=== PATIENT | female | born 1980 | race African-American/Black ===

== ENCOUNTER 2016-07-10 18:25 | Emergency (ER) | payer MEDICAID ==
[~2016-07-10] VITALS: Ht 170.2 cm; Wt 145.0 kg
[~2016-07-10 18:25] MED LIST: ALBUAER3 INH; FLUT50SP EACH NARE; METF500T PO
[2016-07-10 18:26] VITALS: BP 150/92; PULSE 96; RESP 20; TEMP 97.9; O2SAT 98
--- NOTE | 2016-07-10 19:35 | PD ---
HPI Chief Complaint: ENT Complaint Time Seen by Provider: 19:31 Travel History International Travel<30 days: No Contact w/Intl Traveler<30days: No Traveled to known affect area: No History of Present Illness HPI 36-year-old black female presents to emergency department with a one-week history of sore throat. She states that in addition to her sore throat which has been getting worse and has been persistent she's had sinus congestion, runny nose, cough, some shortness of breath and general malaise. Some nausea. She denies any fever or chills. No ear pain, vomiting, diarrhea, abdominal pain or urinary symptoms. She denies any significant myalgias or arthralgias. Patient states that she has an appointment with her doctor in the morning but states that she cannot wait. PFSH Past Medical History Narrative Medical Asthma, diabetes, gallbladder pancreatitis Asthma: Yes Blood Disorders: No Heart Rhythm Problems: No Cancer: No Cardiovascular Problems: Yes High Cholesterol: No Chest Pain: No Congestive Heart Failure: No COPD: No Diabetes: Yes Diminished Hearing: No Endocrine: Yes Gastrointestinal Disorders: Yes GERD: Yes Genitourinary: No Hypertension: Yes (PREECLAMPSIA) Immune Disorder: No Implanted Vascular Access Dvce: No Musculoskeletal: No Neurologic: No Psychiatric: No Reproductive: No Respiratory: Yes (ASTHMA) Immunizations Current: Yes Pancreatitis: Yes Sleep Apnea: No Thyroid Disease: No Tetanus Vaccination: Unknown ?: Not LMP: 1 WEEK AGO : 2 Para: 2 Miscarriage: 0 : 0 Past Surgical History Narrative Surgical Cholecystectomy, herniorrhaphy Abdominal Surgery: Yes (HERNIA) Cholecystectomy: Yes Pacemaker: No Other Surgery: Yes (CHOLECYSTECTOMY) Social History Alcohol Use: No Tobacco Use: No Substance Use: No Allergies-Medications (Allergen,Severity, Reaction): Coded Allergies: No Known Allergies (Unverified , 07/10/16) Reported Meds & Prescriptions Reported Meds & Active Scripts Active Metformin (Metformin HCl) 500 Mg Tab 500 Mg PO DAILY With a meal Proair Hfa 8.5 GM Inh (Albuterol Sulfate) 90 Mcg/Act Aer 1 Puff INH Q4H PRN 108 mcg/actuation Fluticasone Nasal [place] 50 Mcg/Act Naspr 50 Mcg EACH NARE BID 50 mcg/spray Review of Systems Except as stated in HPI: all other systems reviewed are Neg Physical Exam Narrative GENERAL: Well-nourished, well-developed patient. SKIN: Warm and dry. HEAD: Normocephalic. EYES: No scleral icterus. No injection or drainage. NECK: Supple, trachea midline. No JVD or lymphadenopathy. CARDIOVASCULAR: Regular rate and rhythm without murmurs, gallops, or rubs. RESPIRATORY: Breath sounds equal bilaterally. No accessory muscle use. GASTROINTESTINAL: Abdomen soft, non-tender, nondistended. MUSCULOSKELETAL: No cyanosis, or edema. BACK: Nontender without obvious deformity. No CVA tenderness. Data Data Last Documented VS Vital Signs Date Time Temp Pulse Resp B/P Pulse Ox O2 Delivery O2 Flow Rate FiO2 07/10/16 18:26 97.9 96 20 150/92 98 Room Air Orders Group A Rapid Strep Screen (07/10/16 19:35) Strep Culture (Group A) (07/10/16 19:45) MDM Medical Decision Making Medical Screen Exam Complete: Yes Emergency Medical Condition: Yes Medical Record Reviewed: Yes Interpretation(s) Rapid strep: Negative Differential Diagnosis MDM: High Differential diagnoses: Pneumonia, bronchitis, URI, asthma, RAD, influenza Narrative Course Patient's rapid strep is negative. This is acute pharyngitis Diagnosis Primary Impression: Acute pharyngitis Qualified Code: J02.9 - Acute pharyngitis, unspecified etiology Patient Instructions: General Instructions Additional Instructions: Rest. Force fluids. Saltwater gargles. Tylenol and Advil. Chloraseptic [place] Cepastat lozenge. Maalox and Benadryl 50-50 1 teaspoon swish and swallow every 2 hours Follow-up with a primary care doctor in one week. Return to the ER if any problems. Med/Other Pt SpecificInfo: No Meds Exist/No RX given Disposition: 01 DISCHARGE HOME Condition: Stable Ramin Mann Jul 10, 2016 19:35
[2016-07-11] MEDS ORDERED: METF500T PO (10:30)
[2016-07-21] MEDS ORDERED: PRED20 PO (16:00)
== END 2016-07-10 21:11 | disposition home or self-care (01) ==
LOC: NEPB 18:25
DX: J02.9 Acute pharyngitis, unspecified (principal); J45.909 Unspecified asthma, uncomplicated; E11.9 Type 2 diabetes mellitus without complications
CPT/HCPCS: 87081; 87880; 99283

== ENCOUNTER 2016-08-21 08:34 | Emergency (ER) | payer MEDICAID ==
[~2016-08-21] VITALS: Ht 167.6 cm; Wt 145.0 kg
[~2016-08-21 08:34] MED LIST changes: +PRED20 PO
[2016-08-21 08:35] VITALS: BP 193/112; PULSE 104; RESP 24; TEMP 100; O2SAT 97
--- NOTE | 2016-08-21 08:58 | PD ---
HPI Chief Complaint: Cold / Flu Symptoms Time Seen by Provider: 08:58 Travel History International Travel<30 days: No Contact w/Intl Traveler<30days: No Traveled to known affect area: No History of Present Illness HPI 36-year-old female came to the emergency room with history of sore throat, fever , chills, headache and body ache for past 2 days. Patient says her throat hurts a lot and she is unable to eat or drink anything. Patient had a temperature of 100 in the triage with some tachycardia. She looks uncomfortable. She does not recall of any sick contacts. She is able to talk and answer questions appropriately. Patient is unable to swallow since that makes the pain worse. PFSH Past Medical History Narrative Medical List of her home medications reviewed from the nursing note. Asthma: Yes Blood Disorders: No Heart Rhythm Problems: No Cancer: No Cardiovascular Problems: Yes High Cholesterol: No Chest Pain: No Congestive Heart Failure: No COPD: No Diabetes: Yes Diminished Hearing: No Endocrine: Yes Gastrointestinal Disorders: Yes GERD: Yes Genitourinary: No Hypertension: Yes (PREECLAMPSIA) Immune Disorder: No Implanted Vascular Access Dvce: No Musculoskeletal: No Neurologic: No Psychiatric: No Reproductive: No Respiratory: Yes (ASTHMA) Immunizations Current: Yes Pancreatitis: Yes Sleep Apnea: No Thyroid Disease: No LMP: 07/27/16 : 2 Para: 2 Miscarriage: 0 : 0 Past Surgical History Abdominal Surgery: Yes (HERNIA) Cholecystectomy: Yes Pacemaker: No Other Surgery: Yes (CHOLECYSTECTOMY) Social History Alcohol Use: No Tobacco Use: No Substance Use: No Allergies-Medications (Allergen,Severity, Reaction): Coded Allergies: No Known Allergies (Unverified , 08/21/16) Comments No known allergies. Reported Meds & Prescriptions Reported Meds & Active Scripts Active Amoxicillin 500 Mg Cap 500 Mg PO BID 10 Days Metformin (Metformin HCl) 500 Mg Tab 500 Mg PO DAILY With a meal Proair Hfa 8.5 GM Inh (Albuterol Sulfate) 90 Mcg/Act Aer 1 Puff INH Q4H PRN 108 mcg/actuation Narrative Medication List of her home medications reviewed from the nursing note. Review of Systems Except as stated in HPI: all other systems reviewed are Neg Physical Exam Narrative GENERAL: Awake, alert, morbidly obese, moderate distress SKIN: Focused skin assessment warm/dry. HEAD: Atraumatic. Normocephalic. EYES: Pupils equal and round. No scleral icterus. No injection or drainage. ENT: No nasal bleeding or discharge. Mucous membranes pink and moist. Halitosis, enlarged tonsils bilaterally with exudates, submandibular lymphadenopathy NECK: Trachea midline. No JVD. CARDIOVASCULAR: Regular rate and rhythm. No murmur appreciated. RESPIRATORY: No accessory muscle use. Clear to auscultation. Breath sounds equal bilaterally. GASTROINTESTINAL: Abdomen soft, non-tender, nondistended. Hepatic and splenic margins not palpable. MUSCULOSKELETAL: No obvious deformities. No clubbing. No cyanosis. No edema. NEUROLOGICAL: Awake and alert. No obvious cranial nerve deficits. Motor grossly within normal limits. Normal speech. PSYCHIATRIC: Appropriate mood and affect; insight and judgment normal. Data Data Last Documented VS Vital Signs Date Time Temp Pulse Resp B/P Pulse Ox O2 Delivery O2 Flow Rate FiO2 08/21/16 08:35 100.0 104 24 193/112 97 Room Air Orders Complete Blood Count With Diff (08/21/16 09:08) Urinalysis - C+S If Indicated (08/21/16 09:08) Blood Culture (08/21/16 09:08) Influenzae A/B Antigen (08/21/16 09:08) Sodium Chlor 0.9% 1000 Ml Inj (Ns 1000 M (08/21/16 09:15) Group A Rapid Strep Screen (08/21/16 09:17) Dexamethasone Inj (Decadron Inj) (08/21/16 09:30) Ibuprofen (Motrin) (08/21/16 09:30) Amoxicillin (Trimox) (08/21/16 11:00) Labs Laboratory Tests Test 08/21/16 08/21/16 10:15 10:30 White Blood Count 13.9 TH/MM3 Red Blood Count 4.45 MIL/MM3 Hemoglobin 12.0 GM/DL Hematocrit 36.8 % Mean Corpuscular Volume 82.6 FL Mean Corpuscular Hemoglobin 26.9 PG Mean Corpuscular Hemoglobin 32.6 % Concent Red Cell Distribution Width 14.4 % Platelet Count 271 TH/MM3 Mean Platelet Volume 8.8 FL Neutrophils (%) (Auto) 87.6 % Lymphocytes (%) (Auto) 5.2 % Monocytes (%) (Auto) 6.6 % Eosinophils (%) (Auto) 0.5 % Basophils (%) (Auto) 0.1 % Neutrophils # (Auto) 12.1 TH/MM3 Lymphocytes # (Auto) 0.7 TH/MM3 Monocytes # (Auto) 0.9 TH/MM3 Eosinophils # (Auto) 0.1 TH/MM3 Basophils # (Auto) 0.0 TH/MM3 CBC Comment DIFF FINAL Differential Comment Urine Color YELLOW Urine Turbidity CLEAR Urine pH 7.5 Urine Specific [place] 1.016 Urine Protein TRACE mg/dL Urine Glucose (UA) NEG mg/dL Urine Ketones TRACE mg/dL Urine Occult Blood NEG Urine Nitrite NEG Urine Bilirubin NEG Urine Urobilinogen LESS THAN 2.0 MG/DL Urine Leukocyte Esterase NEG Urine RBC LESS THAN 1 /hpf Urine WBC LESS THAN 1 /hpf Urine Squamous Epithelial <1 /hpf Cells Microscopic Urinalysis Comment CULT NOT INDICATED MDM Medical Decision Making Medical Screen Exam Complete: Yes Emergency Medical Condition: Yes Medical Record Reviewed: Yes Differential Diagnosis Strep throat, infectious mononucleosis, pharyngitis Narrative Course 10:58 AM patient was given IM Decadron 10 mg, IV fluid bolus 1 L for the swelling and pain as well as Toradol. Patient has slight leukocytosis and rapid strep is positive. I've ordered 500 mg of by mouth amoxicillin. 11:21 AM BMP was not resulted since its OB collect. I've at this point canceled the BMP. Patient will be discharged home on prescription. Procedures EKG Prior to Arrival: No Diagnosis Primary Impression: Strep pharyngitis Referrals: Primary Care Physician 2 days Additional Instructions: Please return to the ER if the condition worsens or any other new concerns. Otherwise follow-up with your primary care. Take the medications as per the prescription direction. Med/Other Pt SpecificInfo: Prescription(s) given Scripts Amoxicillin 500 Mg [id number] Mg PO BID 10 Days Ref 0 Prov:Kimani Steiner MD 08/21/16 Disposition: 01 DISCHARGE HOME Condition: Stable Kimani Steiner MD August 21, 2016 08:58
[2016-08-21] MEDS ORDERED: SODIUM CHLOR 0.9% 1000 ML INJ 1,000 ML IV ONE (09:15)
[2016-08-21] MEDS ORDERED: IBUPROFEN 800 MG TAB PO ONE (09:30)
[2016-08-21] MEDS ORDERED: DEXAMETHASONE SOD PHOS 20 MG/5 ML VIAL IM ONE (09:30)
[2016-08-21 10:31] LABS: AUTOMATED NEUTROPHIL # 12.1 TH/MM3 (1.8-7.7); BASOPHIL % 0.1 % (0.0-2.0); EOSINOPHIL # 0.1 TH/MM3 (0-0.4); EOSINOPHIL % 0.5 % (0.0-4.0); HEMATOCRIT 36.8 % (35.0-46.0); HEMO FLAGS DIFF FINAL; LYMPH % 5.2 % (9.0-44.0); LYMPHOCYTE # 0.7 TH/MM3 (1.0-4.8); MEAN CELL VOLUME 82.6 FL (80.0-100.0); MEAN CORPUSCULAR HEMOGLOBIN 26.9 PG (27.0-34.0); MEAN CORPUSCULAR HGB CONC 32.6 % (32.0-36.0); MONO % 6.6 % (0.0-8.0); NEUT % 87.6 % (16.0-70.0); PLATELET COUNT 271 TH/MM3 (150-450); RED BLOOD COUNT 4.45 MIL/MM3 (4.00-5.30); RED CELL DISTRIBUTION WIDTH 14.4 % (11.6-17.2); WHITE BLOOD COUNT 13.9 TH/MM3 (4.0-11.0)
[2016-08-21] MEDS ORDERED: AMOXICILLIN (TRIHYDRATE) 500 MG CAP PO ONE (11:00)
[2016-08-21] MEDS ORDERED: AMOX500C PO (11:23)
[2016-08-21 12:11] LABS: BLOOD, URINE NEG (NEG); GLUCOSE,URINE NEG (NEG); KETONE, URINE TRACE mg/dL (NEG); NITRITE,URINE NEG (NEG); PH, URINE 7.5 (5.0-8.5); SQUAMOUS EPITHELIAL CELL URINE <1 /hpf (0-5); URINE COLOR YELLOW (YELLW/STRAW)
[2016-08-21 12:22] LABS: COMMENT (UR) CULT NOT INDICATED; CULTURE IF INDICATED CULT NOT INDICATED
== END 2016-08-21 12:04 | disposition home or self-care (01) ==
LOC: NEPC 08:34
DX: J02.0 Streptococcal pharyngitis (principal); R51 Headache; M79.1 Myalgia; E11.9 Type 2 diabetes mellitus without complications; Z79.84 Long term (current) use of oral hypoglycemic drugs; Z87.09 Personal history of other diseases of the respiratory system; Z86.79 Personal history of other diseases of the circulatory system; Z87.19 Personal history of other diseases of the digestive system
CPT/HCPCS: 81001; 85025; 87040; 87804; 87880; 96372; 99283; J1100; J7030

== ENCOUNTER 2016-09-18 10:39 | Emergency (ER) | payer MEDICAID ==
[~2016-09-18] VITALS: Ht 167.6 cm; Wt 145.0 kg
[~2016-09-18 10:39] MED LIST changes: +AMOX500C PO; -FLUT50SP EACH NARE; -PRED20 PO
[2016-09-18 10:41] VITALS: BP 182/117; PULSE 102; RESP 20; TEMP 98.6; O2SAT 98
[2016-09-18] MEDS ORDERED: AMOX500C PO (10:59)
[2016-09-18 11:00] VITALS: BP 157/84; PULSE 98; RESP 20; O2SAT 98
[2016-09-18] MEDS ORDERED: MAGICPED SWISH-SPIT (11:00)
[2016-09-18] MEDS ORDERED: IBUP800T23 PO (11:00)
--- NOTE | 2016-09-18 11:01 | PD ---
HPI Chief Complaint: ENT Complaint Time Seen by Provider: 10:58 Travel History International Travel<30 days: No Contact w/Intl Traveler<30days: No Traveled to known affect area: No History of Present Illness HPI 36-year-old female presents to the emergency Department with complaint of sore throat that started yesterday. She said she was here August 21 and treated for strep throat, but she never changed her toothbrush and thinks she may have reinfected herself. Denies a lump in throat, difficulty swallowing, unusual drooling. Reports painful swallowing. Reports tender and swollen lymph nodes to the anterior neck. Denies fever, cough, vomiting, abdominal pain. Reports headache. Denies nasal congestion, ear pain. Took ibuprofen earlier this morning with minimal relief of symptoms. No known allergies. Has no other medical complaints. No other modifying factors or associated signs and symptoms. PFSH Past Medical History Asthma: Yes Blood Disorders: No Heart Rhythm Problems: No Cancer: No Cardiovascular Problems: Yes High Cholesterol: No Chest Pain: No Congestive Heart Failure: No COPD: No Diabetes: Yes Diminished Hearing: No Endocrine: Yes Gastrointestinal Disorders: Yes GERD: Yes Genitourinary: No Hypertension: Yes (PREECLAMPSIA) Immune Disorder: No Implanted Vascular Access Dvce: No Musculoskeletal: No Neurologic: No Psychiatric: No Reproductive: No Respiratory: Yes (ASTHMA) Immunizations Current: Yes Pancreatitis: Yes Sleep Apnea: No Thyroid Disease: No ?: Not : 2 Para: 2 Miscarriage: 0 : 0 Past Surgical History Abdominal Surgery: Yes (HERNIA) Cholecystectomy: Yes Pacemaker: No Other Surgery: Yes (CHOLECYSTECTOMY) Social History Alcohol Use: No Tobacco Use: No Substance Use: No Allergies-Medications (Allergen,Severity, Reaction): Coded Allergies: No Known Allergies (Unverified , 08/21/16) Reported Meds & Prescriptions Reported Meds & Active Scripts Active Magic Mouthwash Pediatric/Adult Liq (Lidocaine/Diphenhydr/Alum/Mg/Simeth) 60 Ml Susp 5 Ml SWISH-SPIT Q3HR PRN Each 5mL contains: Diphenydramine 4.5mg, Viscous Lidocaine 2% 10mg, Maalox Advanced Regular Strength 2.7ml Ibuprofen 800 Mg Tab 800 Mg PO Q6HR PRN Amoxicillin 500 Mg Cap 500 Mg PO BID 10 Days Amoxicillin 500 Mg Cap 500 Mg PO BID 10 Days Metformin (Metformin HCl) 500 Mg Tab 500 Mg PO DAILY With a meal Proair Hfa 8.5 GM Inh (Albuterol Sulfate) 90 Mcg/Act Aer 1 Puff INH Q4H PRN 108 mcg/actuation Review of Systems Except as stated in HPI: all other systems reviewed are Neg Physical Exam Narrative GENERAL: Well-nourished, well-developed female patient, in no acute distress; afebrile, nontoxic-appearing SKIN: Warm and dry. No rash. HEAD: Atraumatic. Normocephalic. EYES: Pupils equal and round at 3 mm with brisk reaction. No scleral icterus. No injection or drainage. PERRLA. ENT: Mucosa pink and dry. Pharynx with 2 + tonsils; with erythema, exudate, and edema. No Uvular edema. No uvular, palatal, or tonsillar deviation. Airway patent. Voice is hoarse. EARS: Bilateral pinnae and external canals appear within normal limits. Bilateral tympanic membranes without erythema, dullness or perforation.. NECK: Trachea midline. Anterior cervical lymphadenopathy and tenderness. CARDIOVASCULAR: Regular rate. RESPIRATORY: No accessory muscle use. GASTROINTESTINAL: Obese. MUSCULOSKELETAL: No obvious deformities. No clubbing. No cyanosis. No edema. NEUROLOGICAL: Awake and alert. Oriented 3. No obvious cranial nerve deficits. Motor grossly within normal limits. Normal speech. Moves all extremities. PSYCHIATRIC: Appropriate mood and affect; insight and judgment normal. Data Data Last Documented VS Vital Signs Date Time Temp Pulse Resp B/P Pulse Ox O2 Delivery O2 Flow Rate FiO2 09/18/16 11:00 98 20 157/84 98 Room Air 09/18/16 10:41 98.6 [facility] Medical Decision Making Medical Screen Exam Complete: Yes Emergency Medical Condition: Yes Medical Record Reviewed: Yes Differential Diagnosis Exudative pharyngitis, strep pharyngitis, less likely peritonsillar abscess Narrative Course 36-year-old female with exudative pharyngitis. Afebrile and nontoxic appearing. Patient denies fever, vomiting. Amoxicillin, Magic mouthwash, ibuprofen prescribed for home. Patient verbalizes understanding and agreement with treatment plan. Patient is medically cleared and stable for discharge. Discussed reasons to return to the emergency department. Instructed patient to follow up with primary care provider. Patient agrees with treatment plan. The patients vital signs are stable and the patient is stable for outpatient follow- up and treatment. Patient discharged home, stable and in no acute distress. Diagnosis Primary Impression: Exudative pharyngitis Referrals: Primary Care Physician Patient Instructions: General Instructions, Pharyngitis (ED) Departure Forms: Tests/Procedures, Work Release Enter return to work date: September 20, 2016 Additional Instructions: Take Antibiotics as prescribed and complete full course of antibiotics Throw away and change your toothbrush 24 hours after starting antibiotics Get plenty of sleep/rest Rest your voice Drink plenty of fluids to prevent dehydration Use warm saltwater gargles to soothe throat pain Use an air humidifier/turn off ceiling fans Use throat lozenges as needed for sore throat Use ibuprofen or acetaminophen as needed to relieve pain and fever Follow-up with your primary care provider within 2-4 days Return immediately to the emergency department with worsening of symptoms Med/Other Pt SpecificInfo: Prescription(s) given Scripts Onnzsnzaoplzkod-Jlkvttoql-Pge-Alum-Simeth Liq (Magic Mouthwash Pediatric/Adult Liq)60 Ml Susp5 Ml SWISH-SPIT Q3HR PRN (PAIN SCALE 1 TO 10) #60 ML Ref 0 Each 5mL contains: Diphenydramine 4.5mg, Viscous Lidocaine 2% 10mg, Maalox Advanced Regular Strength 2.7ml Prov:Cami Flynn 09/18/16 Ibuprofen 800 Mg Sub224 Mg PO Q6HR PRN (PAIN) #30 TAB Ref 0 Prov:Cami Flynn 09/18/16 Amoxicillin 500 Mg Pqi358 Mg PO BID 10 Days Ref 0 Prov:Cami Flynn 09/18/16 Disposition: 01 DISCHARGE HOME Condition: Stable Cami Flynn September 18, 2016 11:01
== END 2016-09-18 11:32 | disposition home or self-care (01) ==
LOC: NEPK 10:39
DX: J02.9 Acute pharyngitis, unspecified (principal); J45.909 Unspecified asthma, uncomplicated; E11.9 Type 2 diabetes mellitus without complications
CPT/HCPCS: 99284

== ENCOUNTER 2017-07-01 07:17 | Emergency (ER) | payer MEDICAID ==
[~2017-07-01] VITALS: Ht 170.2 cm; Wt 145.0 kg
[~2017-07-01 07:17] MED LIST changes: -AMOX500C PO; +IBUP1TAB7 PO
[2017-07-01 07:21] VITALS: BP 176/88; PULSE 85; RESP 18; TEMP 98.3; O2SAT 100
[2017-07-01] MEDS ORDERED: AMOX875T PO (07:32)
[2017-07-01] MEDS ORDERED: FLUT1SPR5 EACH NARE (07:32)
--- NOTE | 2017-07-01 07:42 | PD ---
HPI Chief Complaint: Cold / Flu Symptoms Time Seen by Provider: 07:26 Travel History International Travel<30 days: No Contact w/Intl Traveler<30days: No Traveled to known affect area: No History of Present Illness HPI 37-year-old -Turkish female presents to the emergency department with several day history of upper respiratory type symptoms. Patient states she is worsening in terms of her sinus congestion, postnasal drip, and severe sore throat. Patient denies significant fever or chills. Patient denies significant cough. Patient states her ears feel full but not painful. She has had no nausea or vomiting or diarrhea. Her throat pain is 8 out of 10 and kept her up last night. She describes it as "needles in my throat". She has no known drug allergies. PFSH Past Medical History Asthma: Yes Blood Disorders: No Heart Rhythm Problems: No Cancer: No Cardiovascular Problems: Yes High Cholesterol: No Chest Pain: No Congestive Heart Failure: No COPD: No Diabetes: Yes Patient Takes Glucophage: Yes Diminished Hearing: No Endocrine: Yes Gastrointestinal Disorders: Yes GERD: Yes Genitourinary: No Hypertension: Yes (PREECLAMPSIA) Immune Disorder: No Implanted Vascular Access Dvce: No Musculoskeletal: No Neurologic: No Psychiatric: No Reproductive: No Respiratory: Yes (ASTHMA) Immunizations Current: Yes Pancreatitis: Yes Sleep Apnea: No Thyroid Disease: No ?: Not : 2 Para: 2 Miscarriage: 0 : 0 Past Surgical History Abdominal Surgery: Yes (HERNIA) Cholecystectomy: Yes Pacemaker: No Other Surgery: Yes (CHOLECYSTECTOMY) Social History Alcohol Use: No Tobacco Use: No Substance Use: No Allergies-Medications (Allergen,Severity, Reaction): Coded Allergies: No Known Allergies (Unverified Adverse Reaction, Unknown, 07/01/17) Reported Meds & Prescriptions Reported Meds & Active Scripts Active Flonase Nasal [place] (Fluticasone Nasal [place]) 50 Mcg/Act [place] 100 Mcg EACH NARE BID Amoxicillin 875 Mg Tab 875 Mg PO BID 10 Days Metformin (Metformin HCl) 500 Mg Tab 500 Mg PO DAILY With a meal Proair Hfa 8.5 GM Inh (Albuterol Sulfate) 90 Mcg/Act Aer 1 Puff INH Q4H PRN 108 mcg/actuation Review of Systems Except as stated in HPI: all other systems reviewed are Neg General / Constitutional: No: Fever, Chills Eyes: No: Visual changes HENT: Positive: Headaches, Sore Throat, Rhinitis, Rhinorrhea, Congestion, Earache, No: Vertigo, Lightheadedness, Nosebleed, Neck Stiffness, Neck Pain, Ear Discharge Cardiovascular: No: Chest Pain or Discomfort Respiratory: No: Cough, Shortness of Breath, Wheezing Gastrointestinal: No: Abdominal Pain Genitourinary: No: Dysuria Musculoskeletal: No: Pain Skin: No Rash Neurologic: No: Weakness Psychiatric: No: Depression Endocrine: No: Polydipsia Hematologic/Lymphatic: No: Easy Bruising Physical Exam Narrative GENERAL: Moderately obese female mild distress. She appears ill but not septic. SKIN: Warm and dry. Normal color. Normal turgor. No rash. HEAD: Atraumatic. Normocephalic. EYES: Pupils equal and round. No scleral icterus. No injection or drainage. ENT: No nasal bleeding or discharge. Mucous membranes pink and moist. TMs are somewhat dull bilaterally with serous fluid present, without erythema. Sinuses are tender both frontal and maxillary sinuses. Patient has muffled sounding voice. Posterior pharynx is obvious beefy red erythema with mild to moderate generalized swelling without exudate. Airways patent. NECK: Trachea midline. Supple with mild to moderate tender anterior cervical lymphadenopathy. CARDIOVASCULAR: Regular rate and rhythm. RESPIRATORY: No accessory muscle use. Clear to auscultation. Breath sounds equal bilaterally. GASTROINTESTINAL: Abdomen soft, non-tender, nondistended. Hepatic and splenic margins not palpable. MUSCULOSKELETAL: Extremities without clubbing, cyanosis, or edema. No obvious deformities. NEUROLOGICAL: Awake and alert. No obvious cranial nerve deficits. Motor grossly within normal limits. Five out of 5 muscle strength in the arms and legs. Normal speech. PSYCHIATRIC: Appropriate mood and affect; insight and judgment normal. Data Data Last Documented VS Vital Signs Date Time Temp Pulse Resp B/P (MAP) Pulse Ox O2 Delivery O2 Flow Rate FiO2 07/01/17 07:21 98.3 85 18 176/88 (117) 100 MDM Medical Decision Making Medical Screen Exam Complete: Yes Emergency Medical Condition: Yes Differential Diagnosis Upper respiratory infection. Postnasal drip. Sinusitis. Strep pharyngitis. Narrative Course I believe the patient has a combination of strep pharyngitis and possible sinusitis. Patient will be treated with amoxicillin 875 twice daily 10 days. Patient also given Flonase nasal spray 2 sprays each nostril daily. Patient should take Tylenol or ibuprofen as needed as well. Patient should rest, push fluids, follow-up if symptoms worsen as needed. Diagnosis Primary Impression: Strep pharyngitis Additional Impression: Acute pansinusitis, unspecified Qualified Codes: J01.40 - Acute pansinusitis, unspecified Patient Instructions: General Instructions, Pharyngitis (ED), Rhinosinusitis ( ED) Additional Instructions: I believe the patient has a combination of strep pharyngitis and possible sinusitis. Patient will be treated with amoxicillin 875 twice daily 10 days. Patient also given Flonase nasal spray 2 sprays each nostril daily. Patient should take Tylenol or ibuprofen as needed as well. Patient should rest, push fluids, follow-up if symptoms worsen as needed. Med/Other Pt SpecificInfo: Prescription(s) given Scripts Fluticasone Nasal [place] (Flonase Nasal [place]) 50 Mcg/Act [place] 100 MCG EACH NARE BID for Allergies, #1 BOTTLE 0 Refills Prov: Grace Barrera MD 07/01/17 Amoxicillin (Amoxicillin) 875 Mg Tab 875 MG PO BID for Infection for 10 Days, #20 TAB 0 Refills Prov: Grace Barrera MD 07/01/17 Disposition: 01 DISCHARGE HOME Condition: Stable Emerson Keller Jul 01, 2017 07:42
== END 2017-07-01 07:49 | disposition home or self-care (01) ==
LOC: NEPD 07:17
DX: J02.0 Streptococcal pharyngitis (principal); J01.40 Acute pansinusitis, unspecified; E11.9 Type 2 diabetes mellitus without complications; Z79.84 Long term (current) use of oral hypoglycemic drugs
CPT/HCPCS: 99283

== ENCOUNTER 2017-09-23 09:02 | Emergency (ER) | payer MEDICAID ==
[~2017-09-23] VITALS: Ht 167.6 cm; Wt 150.0 kg
[~2017-09-23 09:02] MED LIST changes: +AMOX875T PO; +FLUT1SPR5 EACH NARE; -IBUP1TAB7 PO
[2017-09-23 09:04] VITALS: BP 178/98; PULSE 75; RESP 16; TEMP 98.5; O2SAT 99
[2017-09-23] MEDS ORDERED: CYCLOBENZAPRINE HCL 10 MG TAB PO ONE (10:30)
[2017-09-23] MEDS ORDERED: KETOROLAC TROMETHAMINE 60 MG/2 ML (IM) VIAL IM ONE (10:30)
[2017-09-23 11:26] VITALS: BP 178/98; PULSE 75; RESP 16; TEMP 98.5; O2SAT 99
[2017-09-23] MEDS ORDERED: CYCL10TA PO (11:36)
--- NOTE | 2017-09-23 11:36 | PD ---
HPI Chief Complaint: Back/ Neck Pain or Injury Time Seen by Provider: 10:19 Travel History International Travel<30 days: No Contact w/Intl Traveler<30days: No Traveled to known affect area: No History of Present Illness HPI Patient is a 37 year old female who comes in complaining of low back pain. 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 She denies any injuries. She has taken Ibuprofen for pain without much relief. She says this has happened before and she was told she had a pinched nerve. She denies any numbness or tingling of her legs or any issues with urination. Severity is mild to moderate. PFSH Past Medical History Asthma: Yes Blood Disorders: No Heart Rhythm Problems: No Cancer: No Cardiovascular Problems: Yes High Cholesterol: No Chest Pain: No Congestive Heart Failure: No COPD: No Diabetes: Yes Patient Takes Glucophage: Yes (09/22/17) Diminished Hearing: No Endocrine: Yes Gastrointestinal Disorders: Yes GERD: Yes Genitourinary: No Hypertension: Yes (PREECLAMPSIA) Immune Disorder: No Implanted Vascular Access Dvce: No Musculoskeletal: No Neurologic: No Psychiatric: No Reproductive: No Respiratory: Yes (ASTHMA) Immunizations Current: Yes Pancreatitis: Yes Sleep Apnea: No Thyroid Disease: No ?: Not LMP: 08/22/17 : 2 Para: 2 Miscarriage: 0 : 0 Past Surgical History Abdominal Surgery: Yes (HERNIA) Cholecystectomy: Yes Pacemaker: No Other Surgery: Yes (CHOLECYSTECTOMY) Social History Alcohol Use: No Tobacco Use: No Substance Use: No Allergies-Medications (Allergen,Severity, Reaction): Coded Allergies: No Known Allergies (Verified Adverse Reaction, Unknown, 09/23/17) Reported Meds & Prescriptions Reported Meds & Active Scripts Active Flonase Nasal Henderson (Fluticasone Nasal Henderson) 50 Mcg/Act Henderson 100 Mcg EACH NARE BID Metformin (Metformin HCl) 500 Mg Tab 500 Mg PO DAILY With a meal Proair Hfa 8.5 GM Inh (Albuterol Sulfate) 90 Mcg/Act Aer 1 Puff INH Q4H PRN 108 mcg/actuation Review of Systems General / Constitutional: No: Fever, Chills HENT: No: Headaches, Lightheadedness Cardiovascular: No: Chest Pain or Discomfort Respiratory: No: Shortness of Breath Gastrointestinal: No: Nausea, Vomiting Musculoskeletal: Positive: Pain Skin: No Rash, No Change in Pigmentation Neurologic: No: Paresthesia, Sensory Disturbance Physical Exam Narrative GENERAL: Awake and alert, in no acute distress. SKIN: Focused skin assessment warm/dry. No wounds or signs of infection. HEAD: Atraumatic. Normocephalic. EYES: Pupils equal and round. No scleral icterus. ENT: Mucous membranes pink and moist. CARDIOVASCULAR: Regular rate and rhythm. No murmur appreciated. RESPIRATORY: No accessory muscle use. Clear to auscultation. Breath sounds equal bilaterally. MUSCULOSKELETAL: No obvious deformities. No clubbing. No cyanosis. No edema. No tenderness to palpation of the spine. Tender to palpation of the sacroiliac areas. NEUROLOGICAL: Awake and alert. No obvious cranial nerve deficits. Motor grossly within normal limits. Normal speech. Sensation intact. Data Data Last Documented VS Vital Signs Date Time Temp Pulse Resp B/P (MAP) Pulse Ox O2 Delivery O2 Flow Rate FiO2 09/23/17 09:04 98.5 75 16 178/98 (124) 99 Orders Orders Ketorolac Inj (Toradol Inj) (09/23/17 10:30) Cyclobenzaprine (Flexeril) (09/23/17 10:30) [facility] Medical Decision Making Medical Screen Exam Complete: Yes Emergency Medical Condition: Yes Medical Record Reviewed: Yes Differential Diagnosis muscle strain vs sciatica vs lumbago Narrative Course Patient is a 37-year-old female comes in complaining of low back pain. Exam shows tenderness to sacroiliac areas. Patient given Toradol and Flexeril. She reports feeling better. She is advised to take ibuprofen at home. Given a prescription for Flexeril. Advised follow-up with her primary doctor. Advised return to the ED as needed for any worsening symptoms. Diagnosis Primary Impression: Low back pain Qualified Codes: M54.5 - Low back pain Patient Instructions: Acute Low Back Pain (ED), General Instructions Additional Instructions: Take ibuprofen as needed for pain. You can take Flexeril to help with the pain. Be careful as it may make you sleepy. Follow-up with your doctor. Return to the ED as needed for any worsening symptoms. Scripts Cyclobenzaprine (Flexeril) 10 Mg Tab 10 MG PO TID for Muscle Spasm, #15 TAB 0 Refills Prov: Aruna Daniels MD 09/23/17 Disposition: 01 DISCHARGE HOME Condition: Stable Aruna Daniels MD Sep 23, 2017 11:36
== END 2017-09-23 12:01 | disposition home or self-care (01) ==
LOC: NEPE 09:02
DX: M54.5 Low back pain (principal); J45.909 Unspecified asthma, uncomplicated; E11.9 Type 2 diabetes mellitus without complications; K21.9 Gastro-esophageal reflux disease without esophagitis; I10 Essential (primary) hypertension; Z87.19 Personal history of other diseases of the digestive system; Z79.899 Other long term (current) drug therapy
CPT/HCPCS: 96372; 99283; J1885

== ENCOUNTER 2017-10-16 14:31 | Emergency (ER) | payer MEDICAID ==
[~2017-10-16] VITALS: Ht 167.6 cm; Wt 137.0 kg
[~2017-10-16 14:31] MED LIST changes: -AMOX875T PO; +CYCL10TA PO
[2017-10-16 14:38] VITALS: BP 143/87; PULSE 95; RESP 19; TEMP 97.8; O2SAT 99
[2017-10-16] MEDS ORDERED: KETOROLAC TROMETHAMINE 60 MG/2 ML (IM) VIAL IM ONE (15:15)
[2017-10-16] MEDS ORDERED: ORPHENADRINE INJ 60 MG/2 ML AMP IM ONE (15:15)
[2017-10-16] MEDS ORDERED: IBUP1TAB7 PO (15:19)
[2017-10-16] MEDS ORDERED: MEDR4PAK PO (15:19)
[2017-10-16] MEDS ORDERED: CYCL10TA PO (15:19)
--- NOTE | 2017-10-16 15:19 | PD ---
HPI Chief Complaint: Pain: Acute or Chronic Time Seen by Provider: 14:57 Travel History International Travel<30 days: No Contact w/Intl Traveler<30days: No Traveled to known affect area: No History of Present Illness HPI 37-year-old female presents to the emergency department with complaint of left hip and thigh pain that started last night and she woke up this morning with excruciating pain. She has history of low back pain with sciatica. She says she does have a little bit of pain in her left buttocks. Denies injury. Denies encopresis, incontinence, saddle anesthesias. Denies fever, vomiting, abdominal pain, change in urine or stool. Denies IV drug use or cancer. Denies paresthesias, loss of sensation, decreased range of motion, decreased strength to bilateral lower extremities. has taken ibuprofen with some relief of symptoms. Pain is aggravated with movement and walking. Rates pain 8/10. Primary care provider is Dr. Mariano. No known allergies. History of diabetes mellitus type 2 and takes metformin. Has no other medical complaints. No other modifying factors or associated signs and symptoms. PFSH Past Medical History Asthma: Yes Blood Disorders: No Heart Rhythm Problems: No Cancer: No Cardiovascular Problems: Yes High Cholesterol: No Chest Pain: No Congestive Heart Failure: No COPD: No Diabetes: Yes Patient Takes Glucophage: Yes Diminished Hearing: No Endocrine: Yes Gastrointestinal Disorders: Yes GERD: Yes Genitourinary: No Hypertension: Yes (PREECLAMPSIA) Immune Disorder: No Implanted Vascular Access Dvce: No Musculoskeletal: No Neurologic: No Psychiatric: No Reproductive: No Respiratory: Yes (ASTHMA) Immunizations Current: Yes Pancreatitis: Yes Sleep Apnea: No Thyroid Disease: No ?: Not LMP: 09/2017 : 2 Para: 2 Miscarriage: 0 : 0 Past Surgical History Abdominal Surgery: Yes (HERNIA) Cholecystectomy: Yes Pacemaker: No Other Surgery: Yes (CHOLECYSTECTOMY) Social History Alcohol Use: No Tobacco Use: No Substance Use: No Allergies-Medications (Allergen,Severity, Reaction): Coded Allergies: No Known Allergies (Verified Adverse Reaction, Unknown, 10/16/17) Reported Meds & Prescriptions Reported Meds & Active Scripts Active Medrol Dosepak (Methylprednisolone) 4 Mg Dspk 4 Mg PO DIRECTED Per Pharmacist direction Flexeril (Cyclobenzaprine HCl) 10 Mg Tab 10 Mg PO TID PRN Ibuprofen 800 Mg Tab 800 Mg PO Q6HR PRN Flexeril (Cyclobenzaprine HCl) 10 Mg Tab 10 Mg PO TID Metformin (Metformin HCl) 500 Mg Tab 500 Mg PO DAILY With a meal Proair Hfa 8.5 GM Inh (Albuterol Sulfate) 90 Mcg/Act Aer 1 Puff INH Q4H PRN 108 mcg/actuation Review of Systems Except as stated in HPI: all other systems reviewed are Neg Physical Exam Narrative GENERAL: Well-nourished, well-developed black female patient, in no acute distress; afebrile, nontoxic-appearing; tearful and appears to be painful with movement SKIN: Warm and dry. HEAD: Atraumatic. Normocephalic. EYES: Pupils equal and round. No scleral icterus. No injection or drainage. ENT: Mucosa pink and moist. Airway patent. NECK: Trachea midline. CARDIOVASCULAR: Regular rate. RESPIRATORY: No accessory muscle use. GASTROINTESTINAL: Morbidly obese. MUSCULOSKELETAL: Bilateral lower extremities supple and non-tense with 2+ pedal pulses and sensory intact; with full range of motion and 5/5 strength. 2 + DTRs bilaterally. Active dorsiflexion and extension of bilateral feet. Left straight leg raise is positive for low back pain. Ambulatory in room with a limp to the left lower extremity. Sitting up in bed at 90. No obvious deformities. No clubbing. No cyanosis. No edema. BACK: No midline point tenderness on palpation of the lumbar spine. Tenderness on palpation of left lumbar iliosacral area. No obvious deformities. NEUROLOGICAL: Awake and alert. Oriented 3. No obvious cranial nerve deficits. Motor grossly within normal limits. Normal speech. Moves all extremities. 5/5 strength to all extremities. Sensory intact. PSYCHIATRIC: Appropriate mood and affect; insight and judgment normal. Data Data Last Documented VS Vital Signs Date Time Temp Pulse Resp B/P (MAP) Pulse Ox O2 Delivery O2 Flow Rate FiO2 10/16/17 14:38 97.8 95 19 143/87 (105) 99 Orders Orders Orphenadrine Inj (Norflex Inj) (10/16/17 15:15) Ketorolac Inj (Toradol Inj) (10/16/17 15:15) Ed Discharge Order (10/16/17 15:15) MDM Medical Decision Making Medical Screen Exam Complete: Yes Emergency Medical Condition: Yes Medical Record Reviewed: Yes Differential Diagnosis Low back pain, sciatica, lumbar radiculopathy, arthritis, hip pain Narrative Course 37-year-old female HPI and physical exam consistent with left-sided sciatica. She does have some reproducible pain to the left iliosacral area of the buttock/ lower back. Denies encopresis, incontinence, saddle anesthesias. Denies IV drug use or cancer. Patient is afebrile and nontoxic-appearing. Denies fever, vomiting. No midline tenderness on palpation of the lumbar spine. Ambulatory in the room with a limp to the left lower extremity. No traumatic injury. Norflex, Toradol administered in the ER. Ibuprofen, Flexeril, Medrol Dosepak prescribed for home. Instructed patient to follow up with primary care provider. Patient verbalizes understanding and agreement with treatment plan. Patient is medically cleared and stable for discharge. Discussed reasons to return to the emergency department. Patient agrees with treatment plan. The patients vital signs are stable and the patient is stable for outpatient follow- up and treatment. Patient discharged home, stable and in no acute distress. Diagnosis Primary Impression: Left sided sciatica Referrals: Primary Care Physician Patient Instructions: Acute Low Back Pain (ED), General Instructions, Musculoskeletal Pain (ED), Sciatica (ED) Departure Forms: Tests/Procedures, Work Release Enter return to work date: Oct 18, 2017 Additional Instructions: Tylenol or ibuprofen as directed and as needed for pain Flexeril as prescribed and as needed for muscle spasms Heating pad and/or ice to affected area to reduce pain Avoid aggravating activities; increase activity as tolerated Follow-up with primary care provider Return to emergency department immediately with worsening of symptoms Med/Other Pt SpecificInfo: Prescription(s) given Scripts Methylprednisolone Dosepak (Medrol Dosepak) 4 Mg Dspk 4 MG PO DIRECTED, #1 DSPK 0 Refills Per Pharmacist direction Prov: Cami Flynn [employer] 10/16/17 Cyclobenzaprine (Flexeril) 10 Mg Tab 10 MG PO TID Y for MUSCLE SPASM, #20 TAB 0 Refills Prov: Cami Flynn [employer] 10/16/17 Ibuprofen (Ibuprofen) 800 Mg Tab 800 MG PO Q6HR Y for PAIN, #30 TAB 0 Refills Prov: Cami Flynn [employer] 10/16/17 Disposition: 01 DISCHARGE HOME Condition: Stable Cami Flynn Oct 16, 2017 15:19
== END 2017-10-16 16:18 | disposition home or self-care (01) ==
LOC: NEPK 14:31
DX: M54.42 Lumbago with sciatica, left side (principal); E11.9 Type 2 diabetes mellitus without complications; J45.909 Unspecified asthma, uncomplicated; K21.9 Gastro-esophageal reflux disease without esophagitis; Z90.49 Acquired absence of other specified parts of digestive tract; Z79.84 Long term (current) use of oral hypoglycemic drugs
CPT/HCPCS: 96372; 99283; J1885; J2360